=== PATIENT | female | born 2000 | race Hispanic/Latino ===

== ENCOUNTER → 2023-07-25 | Emergency (ER) | payer BC, OTHER ==
[~2023-07-25] MED LIST: FAMOTIDINE 20 MG/2 ML VIAL IV ONE; KETOROLAC 30 MG/ML INJ ONE; MORPHINE 4 MG/ML SYR ONE; ONDANSETRON 4 MG/2 ML VIAL ONE
--- OUTSIDE RECORDS SUMMARY | 2023-07-25 00:35 | XMS REPORT | Continuity of Care Document ---
Author Name Unknown Address [address] [facility] [address] [place] [address] [facility] thconnect Address [address] [facility] [address] [place] [address] Care Team Providers Care Fitness Director Name Role Phone BARTON, ANH L Primary Care Physician UnavailANASTASIIA Fowler Attending Clinician Unavailable MD DOYLE Attending Clinician Unavailab le LAB53 Attending Clinician Unavailable OU, KARENA PICKETT Attending Clinician Unavailable ADONIS PHAN Attending Clinician Unavail able LAB90 Attending Clinician Unavailable Only, Ang Db Test Attending Clinician Unavailabl Judi Ochoa Attending Clinician [phone] JUDI LE Attending Clinician Unavailable Lab, Adc Fam Pob I Attending Clinician Unavailab Katya Jiang Attending Clinician [phone] Doctor Unassigned, Bostic Attending Clinician U navailable Payers Payer Name Policy Type Policy Number Effective Date Expirati on Date Source BCBS 2 [id number] 2023 00:00:00 Allergies, Adverse Reactions, Alerts Allergy Name Allergy Type Status Severity Reaction(s) Onset Date Inactive Date Treating Clinician Comments Source NO KNOWN ALLERGIE S Drug Class Active [facility] Social History Social Habit Start Date Stop Date Quantity Comments Source Gender identity 2022-06-08 13:41:07 Identifies as female gender (finding) Thania Niñodariasam - External Sexual orientation 2022-06-08 13:41:07 Heterosexual (finding) Thania Niñodariasam - External Exposure to SARS-CoV-2 (event) Yes [facility] Alcohol intake 2023 00:00:00 2023 00:00:00 Lifetime non-drinker (finding) Thania Lyon - External History of Social function 2023-01-28 00:00:00 2023-01-28 00:00:00 Thania Niñodariasam - External Tobacco use and exposure 2017-10-31 00:00:00 2017-10-31 00:00:[address] [facility] Sex Assigned At 2000 00:00:00 2000 00:00:00 F Thania Lyon - External Smoking Status Start Date Stop Date Source Never smoked tobacco Thania Lyon - External Medications Ordered Medication Name Filled Medication Name Start Date Stop Date Current Medication? Ordering Clinician Indication Dosage Frequency Signature (SIG) Comments Components Source Semaglutide -Weight Management (Wegovy) 1.7 MG/0.75ML subcutaneou s Solution Auto-inject or 2022-05 00:00: 00 Yes [id number] 1.7mg Inject 1.7 mg into the skin once a week. Thania swartz Ondansetron (ZOFRAN) 4 MG oral TABLET DISPERSIBLE 2022-05 00:00: 00 Yes [id number] 4mg [id number] 3D Take 1 tablet (4 mg total) by mouth every 8 hours as needed for nausea. Thania swartz Semaglutide -Weight Management (Wegovy) 1.7 MG/0.75ML subcutaneou s Solution Auto-inject or 2022-05 00:00: 00 04-29 00:00 :00 No [id number] 1.7mg Inject 1.7 mg into the skin once a week. Thania Beana sheridan Spironolact one 50 MG oral Tablet 2023-1 2-10 00:00: 00 Yes [id number] 50mg Take 1 tablet (50 mg total) by mouth 2 times daily. Thania swartz Semaglutide -Weight Management (Wegovy) 1.7 MG/0.75ML subcutaneou s Solution Auto-inject or 2022-05 00:00: 00 Yes [id number] 1.7mg Inject 1.7 mg into the skin once a week. Thania Lyon - Externa l Semaglutide -Weight Management (Wegovy) 1.7 MG/0.75ML subcutaneou s Solution Auto-inject or 2022-05 00:00: 00 04-29 00:00 :00 No [id number] 1.7mg Inject 1.7 mg into the skin once a week. Thania Bansal l Spironolact one 50 MG oral Tablet 2022-05 00:00: 00 Yes [id number] 50mg Take 1 tablet (50 mg total) by mouth 2 times daily. Thania swartz Semaglutide -Weight Management (Wegovy) 0.25 MG/0.5ML subcutaneou s Solution Auto-inject or 2022-05 0 00:00: 00 03-28 00:00 :00 No [id number] .25mg Inject 0.25 mg into the skin once a week. Thania swartz Semaglutide -Weight Management (Wegovy) 0.5 MG/0.5ML subcutaneou s Solution Auto-inject or 01-16 00:00: 00 Yes [id number] .5mg Inject 0.5 mg into the skin once a week. Thania Bansal l Spironolact one 50 MG oral Tablet 01-16 00:00: 00 Yes [id number] 50mg Take 1 tablet (50 mg total) by mouth 2 times daily. Thania Lyon - Genevaa l Spironolact one 50 MG oral Tablet 9 00:00: 00 01-16 00:00 :00 No [id number] 50mg TAKE ONE (1) TABLET(S) BY MOUTH TWICE A DAY. Thania swartz Metformin HCl 500 MG oral Tablet 8-11 00:00: 00 01-16 00:00 :00 No [id number] TAKE ONE (1) TABLET(S) BY MOUTH IN THE MORNING AND IN THE EVENING WITH MEALS. Thania swartz Liraglutide -Weight Management (Saxenda) 18 MG/3ML subcutaneou s Solution Pen-injecto r 8-02 00:00: 00 01-16 00:00 :00 No [id number] .6mg Inject 0.1 mL (0.6 mg total) into the skin daily Thania swartz Semaglutide -Weight Management (Wegovy) 0.5 MG/0.5ML subcutaneou s Solution Auto-inject or 7-03 00:00: 00 01-16 00:00 :00 No [id number] .5mg Inject 0.5 mg into the skin once a week Thania swartz Semaglutide -Weight Management (Wegovy) 0.5 MG/0.5ML subcutaneou s Solution Auto-inject or 10-10 00:00: 00 Yes [id number] .5mg Inject 0.5 mg into the skin once a week Thania swartz Spironolact one 50 MG oral Tablet 10-10 00:00: 00 Yes [id number] 50mg Take 1 tablet (50 mg total) by mouth 2 times daily Thania swartz Semaglutide -Weight Management (Wegovy) 0.5 MG/0.5ML subcutaneou s Solution Auto-inject or 10-10 00:00: 00 Yes [id number] .5mg Inject 0.5 mg into the skin once a week Thania swartz Spironolact one 50 MG oral Tablet 10-10 00:00: 00 Yes [id number] 50mg Take 1 tablet (50 mg total) by mouth 2 times daily Thania swartz Spironolact one 50 MG oral Tablet 10-10 00:00: 00 10-10 00:00 :00 No [id number] 50mg Take 1 tablet (50 mg total) by mouth daily Thania swartz Semaglutide -Weight Management (Wegovy) 0.25 MG/0.5ML subcutaneou s Solution Auto-inject or 0 09-12 00:00: 00 Yes [id number] .25mg Inject 0.25 mg into the skin once a week Thania swartz Semaglutide -Weight Management (Wegovy) 0.25 MG/0.5ML subcutaneou s Solution Auto-inject or 09-12 00:00: 00 10-10 00:00 :00 No [id number] .25mg Inject 0.25 mg into the skin once a week Thania swartz Norgestimat e-Eth Estradiol (Sprintec 28) 0.25-35 MG-MCG oral Tablet 09-05 00:00: 00 Yes [id number] 1{tbl} Take 1 tablet by mouth daily Thania swartz Norgestimat e-Eth Estradiol (Sprintec 28) 0.25-35 MG-MCG oral Tablet 09-05 00:00: 00 Yes [id number] 1{tbl} Take 1 tablet by mouth daily Thania swartz Norgestimat e-Eth Estradiol (Sprintec 28) 0.25-35 MG-MCG oral Tablet 09-05 00:00: 00 Yes [id number] 1{tbl} Take 1 tablet by mouth daily Thania swartz Norgestimat e-Eth Estradiol (Sprintec 28) 0.25-35 MG-MCG oral Tablet 0 09-05 00:00: 00 Yes [id number] 1{tbl} Take 1 tablet by mouth daily Thania swartz Norgestimat e-Eth Estradiol (Sprintec 28) 0.25-35 MG-MCG oral Tablet 09-05 00:00: 00 Yes [id number] 1{tbl} Take 1 tablet by mouth daily Thania swartz Norgestimat e-Eth Estradiol (Sprintec 28) 0.25-35 MG-MCG oral Tablet 09-05 00:00: 00 Yes [id number] 1{tbl} Take 1 tablet by mouth daily Thania swartz Norgestimat e-Eth Estradiol (Sprintec 28) 0.25-35 MG-MCG oral Tablet 09-05 00:00: 00 Yes [id number] 1{tbl} Take 1 tablet by mouth daily Thania swartz Phentermine HCl 37.5 MG oral Tablet 14 00:00: 00 09-05 00:00 :00 No [id number] 37.5mg Take 1 tablet (37.5 mg total) by mouth every morning (before breakfast) Thania swartz Semaglutide -Weight Management (Wegovy) 0.25 MG/0.5ML subcutaneou s Solution Auto-inject or 08-22 00:00: 00 09-05 00:00 :00 No [id number] .25mg Inject 0.25 mg into the skin once a week Thania swartz Metformin HCl 500 MG oral Tablet 08-14 00:00: 00 Yes [id number] TAKE ONE (1) TABLET(S) BY MOUTH IN THE MORNING AND 1 TABLET IN THE EVENING WITH MEALS. Thania swartz Metformin HCl 500 MG oral Tablet 08-14 00:00: 00 Yes [id number] TAKE ONE (1) TABLET(S) BY MOUTH IN THE MORNING AND 1 TABLET IN THE EVENING WITH MEALS. Thania swartz Spironolact one 25 MG oral Tablet 08-14 00:00: 00 Yes [id number] TAKE ONE (1) TABLET (25 MG TOTAL) BY MOUTH 2 TIMES DAILY. Thania swartz Metformin HCl 500 MG oral Tablet 08-14 00:00: 00 Yes [id number] TAKE ONE (1) TABLET(S) BY MOUTH IN THE MORNING AND 1 TABLET IN THE EVENING WITH MEALS. Thania swartz Spironolact one 25 MG oral Tablet 08-14 00:00: 00 Yes [id number] TAKE ONE (1) TABLET (25 MG TOTAL) BY MOUTH 2 TIMES DAILY. Thania swartz Metformin HCl 500 MG oral Tablet 08-14 00:00: 00 Yes [id number] TAKE ONE (1) TABLET(S) BY MOUTH IN THE MORNING AND 1 TABLET IN THE EVENING WITH MEALS. Thania swartz Spironolact one 25 MG oral Tablet 08-14 00:00: 10-10 00:00 :00 No [id number] TAKE ONE (1) TABLET (25 MG TOTAL) BY MOUTH 2 TIMES DAILY. Thania swartz Dulaglutide (Trulicity) 0.75 MG/0.5ML subcutaneou s Solution Pen-injecto r 08-06 00:00: 00 Yes [id number] .75mg Inject 0.75 mg into the skin once a week Thania swartz Montelukast (Singulair) 10 MG oral Tablet tablet 08-06 00:00: 00 Yes [id number] 10mg Take 1 tablet (10 mg total) by mouth nightly Thania swartz Ibuprofen (MOTRIN) 600 MG oral Tablet 08-06 00:00: 00 Yes [id number] 100 600mg Q.[id number] 3D Take 1 tablet (600 mg total) by mouth every 8 hours as needed for pain Thania swartz Montelukast (Singulair) 10 MG oral Tablet tablet 08-06 00:00: 00 09-05 00:00 :00 No [id number] 10mg Take 1 tablet (10 mg total) by mouth nightly Thania swartz Ibuprofen (MOTRIN) 600 MG oral Tablet 08-06 00:00: 00 09-05 00:00 :00 No [id number] 100 600mg Q.[id number] 3D Take 1 tablet (600 mg total) by mouth every 8 hours as needed for pain Thania swartz Trulicity 0.75 MG/0.5ML subcutaneou s Solution Pen-injecto r 3-14 00:00: 00 08-06 00:00 :00 No [id number] .75mg Inject 0.75 mg into the skin once a week Thania swartz Spironolact one 25 MG oral Tablet 07-11 00:00: 00 Yes [id number] 25mg Take 1 tablet (25 mg total) by mouth 2 times daily Thania swartz Metformin HCl 500 MG oral Tablet 07-09 00:00: 00 Yes [id number] 500mg Take 1 tablet (500 mg total) by mouth in the morning and 1 tablet (500 mg total) in the evening. Take with meals. Thania swartz Spironolact one 25 MG oral Tablet 07-09 00:00: 00 Yes [id number] 25mg Take 1 tablet (25 mg total) by mouth daily Thania swartz Eflornithin e HCl 13.9 % apply externally Cream 07-09 00:00: 00 Yes [id number] Apply 1 applicatio n. topically 2 times daily (with meals) Thania swartz Norethin-Et h Estrad-Fe Biphas (Lo Loestrin Fe) 1 MG-10 MCG / 10 MCG oral Tablet 07-09 00:00: 00 Yes [id number] 1{tbl} Take 1 tablet by mouth daily Thania swartz Semaglutide (0.25 or 0.5 mg/dose) 2 mg/1.5 mL SQ Solution Pen-Injecto r 07-09 00:00: 00 Yes [id number] .25mg Inject 0.25 mg into the skin once a week Thania swartz Metformin HCl 500 MG oral Tablet 07-09 00:00: 00 Yes [id number] 500mg Take 1 tablet (500 mg total) by mouth in the morning and 1 tablet (500 mg total) in the evening. Take with meals. Thania swartz Eflornithin e HCl 13.9 % apply externally Cream 07-09 00:00: 00 Yes [id number] Apply 1 applicatio n. topically 2 times daily (with meals) Thania swartz Norethin-Et h Estrad-Fe Biphas (Lo Loestrin Fe) 1 MG-10 MCG / 10 MCG oral Tablet 07-09 00:00: 00 Yes [id number] 1{tbl} Take 1 tablet by mouth daily Thania swartz Eflornithin e HCl 13.9 % apply externally Cream 07-09 00:00: 00 09-05 00:00 :00 No [id number] Apply 1 applicatio n. topically 2 times daily (with meals) Thania swartz Norethin-Et h Estrad-Fe Biphas (Lo Loestrin Fe) 1 MG-10 MCG / 10 MCG oral Tablet 07-09 00:00: 00 09-05 00:00 :00 No [id number] 1{tbl} Take 1 tablet by mouth daily Thania swartz beclomethade one dipropionat e (QNASL) 40 mcg/actuati on [facility] 12-18 00:00: 00 Yes [id number] 1{spray } Use 1 Pearsall in each nostril 2 (two) times daily. [facility] levocetiriz ine 5 mg tablet 12-18 00:00: 00 Yes [id number] 5mg Take 1 tablet by mouth every evening. [facility] montelukast (SINGULAIR) 10 mg tablet 12-18 00:00: 00 Yes [id number] 10mg Take 1 tablet by mouth daily. [facility] beclomethas one dipropionat e (QNASL) 40 mcg/actuati on [facility] 12-18 00:00: 00 Yes [id number] 1{spray } Use 1 [place]ears[place] in each nostril 2 (two) times daily. [facility] levocetiriz ine 5 mg tablet 12-18 00:00: 00 Yes [id number] 5mg Take 1 tablet by mouth every evening. [facility] montelukast (SINGULAIR) 10 mg tablet 12-18 00:00: 00 Yes [id number] 10mg Take 1 tablet by mouth daily. [facility] beclomethas one dipropionat e (QNASL) 40 mcg/actuati on [facility] 12-18 00:00: 00 Yes [id number] 1{spray } Use 1 Pearsall in each nostril 2 (two) times daily. [facility] levocetiriz ine 5 mg tablet 12-18 00:00: 00 Yes [id number] 5mg Take 1 tablet by mouth every evening. [facility] montelukast (SINGULAIR) 10 mg tablet 12-18 00:00: 00 Yes [id number] 10mg Take 1 tablet by mouth daily. [facility] beclomethas one dipropionat e (QNASL) 40 mcg/actuati on [facility] 12-18 00:00: 00 Yes [id number] 1{spray } Use 1 Pearsall in each nostril 2 (two) times daily. [facility] levocetiriz ine 5 mg tablet 12-18 00:00: 00 Yes [id number] 5mg Take 1 tablet by mouth every evening. [facility] montelukast (SINGULAIR) 10 mg tablet 12-18 00:00: 00 Yes [id number] 10mg Take 1 tablet by mouth daily. [facility] beclomethas one dipropionat e (QNASL) 40 mcg/actuati on [facility] 12-18 00:00: 00 Yes [id number] 1{spray } Use 1 Pearsall in each nostril 2 (two) times daily. [facility] levocetiriz ine 5 mg tablet 12-18 00:00: 00 Yes [id number] 5mg Take 1 tablet by mouth every evening. [facility] montelukast (SINGULAIR) 10 mg tablet 12-18 00:00: 00 Yes [id number] 10mg Take 1 tablet by mouth daily. [facility] IBUPROFEN ORAL 6-28 15:46: 39 Yes Take by mouth. [facility] IBUPROFEN ORAL 11-07 15:46: 39 Yes Take by mouth. [facility] IBUPROFEN ORAL 11-07 15:46: 39 Yes Take by mouth. [facility] IBUPROFEN ORAL 11-07 15:46: 39 Yes Take by mouth. [facility] IBUPROFEN ORAL 11-07 10:46: 39 Yes Take by mouth. [facility] prednisoLON E 15 mg/5 mL solution 11-07 00:00: 00 Yes [id number] Take 15 ml PO QAM with food for 5 days starting Saturday after surgery [facility] maalox:diph enhydrAMINE :lidocaine2 %viscous 1:1:1: suspension (COMPOUNDED ) 11-07 00:00: 00 Yes [id number] Swish and spit 10 ml PO q3-4 hrs prn tonsillect arvin pain [facility] HYDROcodone -acetaminop hen 7.5-325 mg/15 mL solution 11-07 00:00: 00 Yes [id number] Take 15 ml PO q3-4 hrs prn severe pain; alternate liquid ibuprofen and Tylenol first [facility] prednisoLON E 15 mg/5 mL solution 11-07 00:00: 00 Yes [id number] Take 15 ml PO QAM with food for 5 days starting Saturday after surgery [facility] maalox:diph enhydrAMINE :lidocaine2 %viscous 1:1:1: suspension (COMPOUNDED ) 11-07 00:00: 00 Yes [id number] Swish and spit 10 ml PO q3-4 hrs prn tonsillect arvin pain [facility] HYDROcodone -acetaminop hen 7.5-325 mg/15 mL solution 11-07 00:00: 00 Yes [id number] Take 15 ml PO q3-4 hrs prn severe pain; alternate liquid ibuprofen and Tylenol first [facility] prednisoLON E 15 mg/5 mL solution 11-07 00:00: 00 Yes [id number] Take 15 ml PO QAM with food for 5 days starting Saturday after surgery [facility] maalox:diph enhydrAMINE :lidocaine2 %viscous 1:1:1: suspension (COMPOUNDED ) 11-07 00:00: 00 Yes [id number] Swish and spit 10 ml PO q3-4 hrs prn tonsillect arvin pain [facility] HYDROcodone -acetaminop hen 7.5-325 mg/15 mL solution 11-07 00:00: 00 Yes [id number] Take 15 ml PO q3-4 hrs prn severe pain; alternate liquid ibuprofen and Tylenol first [facility] prednisoLON E 15 mg/5 mL solution 11-07 00:00: 00 Yes [id number] Take 15 ml PO QAM with food for 5 days [facility]lidocaine2 %viscous 1:1:1: suspension (COMPOUNDED ) 11-07 00:00: 00 Yes [id number] Swish and spit 10 ml PO q3-4 hrs prn tonsillect arvin pain [facility] HYDROcodone -acetaminop hen 7.5-325 mg/15 mL solution 11-07 00:00: 00 Yes [id number] Take 15 ml PO q3-4 hrs prn severe pain; alternate liquid ibuprofen and Tylenol first [facility] prednisoLON E 15 mg/5 mL solution 11-07 00:00: 00 Yes [id number] Take 15 ml PO QAM with food for 5 days starting Saturday after surgery [facility] maalox:diph enhydrAMINE :lidocaine2 %viscous 1:1:1: suspension (COMPOUNDED ) 11-07 00:00: 00 Yes [id number] Swish and spit 10 ml PO q3-4 hrs prn tonsillect arvin pain [facility] HYDROcodone -acetaminop hen 7.5-325 mg/15 mL solution 11-07 00:00: 00 Yes [id number] Take 15 ml PO q3-4 hrs prn severe pain; alternate liquid ibuprofen and Tylenol first [facility] Immunizations Ordered Immunization Name Filled Immunization Name Date Status Comments Source Hepatitis B- 2 Dose (HEPLISAV B) 2022-10-10 00:00:00 Completed Thania Seybold - External Hepatitis B- 2 Dose (HEPLISAV B) 2022-10-10 00:00:00 Completed Thania Seybold - External Hepatitis B- 2 Dose (HEPLISAV B) 2022-10-10 00:00:00 Completed Thania Seybold - External Hepatitis B- 2 Dose (HEPLISAV B) 2022-09-12 00:00:00 Completed Thania Seybold - External Hepatitis B- 2 Dose (HEPLISAV B) 2022-09-12 00:00:00 Completed Thania Seybold - External Hepatitis B- 2 Dose (HEPLISAV B) 2022-09-12 00:00:00 Completed Thania Seybold - External Hepatitis B- 2 Dose (HEPLISAV B) 2022-09-12 00:00:00 Completed Thania Seybold - External Hepatitis B- 2 Dose (HEPLISAV B) Unknown Completed Thania Seybold - External Hepatitis B- 2 Dose (HEPLISAV B) Unknown Completed Thania Seybold - External Hepatitis B- 2 Dose (HEPLISAV B) Unknown Completed Thania Seybold - External Hepatitis B- 2 Dose (HEPLISAV B) Unknown Completed Thania Seybold - External Vital Signs Vital Name Observation Time Observation Value Comments S ource Systolic blood pressure 2023 15:35:00 116 mm[Hg] Thnaia Seybo ld - External Diastolic blood pressure 2023 15:35:00 64 mm[Hg] Thania Seybo ld - External Heart rate 2023 15:35:00 90 /min Russ vasquez Seybold - External Body temperature 2023 15:35:00 36.67 Princess Thania Seybold - External Respiratory rate 2023 15:35:00 16 /min Thania Seybold - External Body height 2023 15:35:00 165.1 cm Nelly ey Seybold - External Body weight 2023 15:35:00 117.623 kg Nelly ey Seybold - External BMI 2023 15:35:00 43.15 kg/m2 Nelly ey Seybold - External Oxygen saturation in Arterial blood by Pulse oximetry 2023 15:35:00 99 /min Thania Seybo ld - External Systolic blood pressure 2023-03-28 13:49:00 126 mm[Hg] Thania Seybo ld - External Diastolic blood pressure 2023-03-28 13:49:00 72 mm[Hg] Thania Seybo ld - External Heart rate 2023-03-28 13:49:00 97 /min Kelse y Seybold - External Body temperature 2023-03-28 13:49:00 36.17 Princess Thania Seybold - External Respiratory rate 2023-03-28 13:49:00 15 /min Thania Seybold - External Body height 2023-03-28 13:49:00 165.1 cm Nelly ey Seybold - External Body weight 2023-03-28 13:49:00 125.193 kg Nelly ey Seybold - External BMI 2023-03-28 13:49:00 45.93 kg/m2 Nelly ey Seybold - External Systolic blood pressure 2023-01-16 21:16:00 144 mm[Hg] Thania Seybo ld - External Diastolic blood pressure 2023-01-16 21:16:00 86 mm[Hg] Thania Seybo ld - External Heart rate 2023-01-16 21:16:00 92 /min Kelse y Seybold - External Body temperature 2023-01-16 21:16:00 36.39 Princess Thania Seybold - External Respiratory rate 2023-01-16 21:16:00 14 /min Thania Seybold - External Body height 2023-01-16 21:16:00 165.1 cm Nelly ey Seybold - External Body weight 2023-01-16 21:16:00 124.286 kg Nelly ey Seybold - External BMI 2023-01-16 21:16:00 45.60 kg/m2 Nelly ey Seybold - External Systolic blood pressure 2022-11-07 14:25:00 134 mm[Hg] Thania Seybo ld - External Diastolic blood pressure 2022-11-07 14:25:00 78 mm[Hg] Thania Seybo ld - External Heart rate 2022-11-07 14:25:00 98 /min Kelse y Seybold - External Body temperature 2022-11-07 14:25:00 36.17 Princess Thania Seybold - External Respiratory rate 2022-11-07 14:25:00 14 /min Thania Seybold - External Body height 2022-11-07 14:25:00 165.1 cm Nelly ey Seybold - External Body weight 2022-11-07 14:25:00 125.193 kg Nelly ey Seybold - External BMI 2022-11-07 14:25:00 45.93 kg/m2 Nelly ey Seybold - External Systolic blood pressure 2022-10-10 15:13:00 126 mm[Hg] Thania Seybo ld - External Diastolic blood pressure 2022-10-10 15:13:00 70 mm[Hg] Thania Seybo ld - External Heart rate 2022-10-10 15:13:00 102 /min Kelse y Seybold - External Body temperature 2022-10-10 15:13:00 36.56 Princess Thania Seybold - External Respiratory rate 2022-10-10 15:13:00 14 /min Thania Seybold - External Body height 2022-10-10 15:13:00 165.1 cm Nelly ey Seybold - External Body weight 2022-10-10 15:13:00 125.193 kg Nelly ey Seybold - External BMI 2022-10-10 15:13:00 45.93 kg/m2 Nelly ey Seybold - External Systolic blood pressure 2022-09-12 13:59:00 120 mm[Hg] Thania Seybo ld - External Diastolic blood pressure 2022-09-12 13:59:00 60 mm[Hg] Thania Seybo ld - External Heart rate 2022-09-12 13:59:00 124 /min Kelse y Seybold - External Body temperature 2022-09-12 13:59:00 36.67 Princess Thania Seybold - External Respiratory rate 2022-09-12 13:59:00 15 /min Thania Seybold - External Body height 2022-09-12 13:59:00 165.1 cm Nelly ey Seybold - External Body weight 2022-09-12 13:59:00 127.007 kg Nelly ey Seybold - External BMI 2022-09-12 13:59:00 46.59 kg/m2 Nelly ey Seybold - External Systolic blood pressure 2022-09-05 15:05:00 130 mm[Hg] Thania Seybo ld - External Diastolic blood pressure 2022-09-05 15:05:00 84 mm[Hg] Thania Seybo ld - External Heart rate 2022-09-05 15:05:00 93 /min Kelse y Seybold - External Body temperature 2022-09-05 15:04:00 36.89 Princess Thania Seybold - External Respiratory rate 2022-09-05 15:04:00 16 /min Thania Seybold - External Body height 2022-09-05 15:04:00 165.1 cm Nelly ey Seybold - External Body weight 2022-09-05 15:04:00 125.919 kg Nelly ey Seybold - External BMI 2022-09-05 15:04:00 46.20 kg/m2 Nelly ey Seybold - External Systolic blood pressure 2022-08-06 13:01:00 124 mm[Hg] Thania Seybo ld - External Diastolic blood pressure 2022-08-06 13:01:00 76 mm[Hg] Thania Seybo ld - External Heart rate 2022-08-06 13:01:00 110 /min Kelse y Seybold - External Body temperature 2022-08-06 13:01:00 36.83 Princess Thania Seybold - External Respiratory rate 2022-08-06 13:01:00 14 /min Thania Seybold - External Body height 2022-08-06 13:01:00 165.1 cm Nelly ey Seybold - External Body weight 2022-08-06 13:01:00 128.822 kg Nelly ey Seybold - External BMI 2022-08-06 13:01:00 47.26 kg/m2 Nelly ey Seybold - External Oxygen saturation in Arterial blood by Pulse oximetry 2022-08-06 13:01:00 99 /min Thania Seybo ld - External Systolic blood pressure 2022-07-09 21:49:00 136 mm[Hg] Thania Seybo ld - External Diastolic blood pressure 2022-07-09 21:49:00 82 mm[Hg] Thania Navarro ld - External Heart rate 2022-07-09 21:49:00 123 /min Russ Lyon - External Body temperature 2022-07-09 21:49:00 37 Princess Thania Lyon - External Respiratory rate 2022-07-09 21:49:00 14 /min Thania Lyon - External Body height 2022-07-09 21:49:00 165.1 cm Nelly Lyon - External Body weight 2022-07-09 21:49:00 128.368 kg Nelly hunter Seybsam - External BMI 2022-07-09 21:49:00 47.09 kg/m2 Nelly hunter Seybsam - External Procedures Procedure Date / Time Performed Performing Clinicia n Source ASSIGNMENT OF BENEFITS 2020-09-12 22:05:14 Docto r Unassigned, [facility] Encounters Start Date/Time End Date/Time Encounter Type Admission Type Attending [facility] Care Department Encounter ID Source 2023-08-26 09:30:00 2023-08-26 09:30:00 Outpatient ANASTASIIA MORTENSEN [id number] Thania david 2023-07-10 00:00:00 2023-07-10 00:00:00 Outpatient ANASTASIIA MORTENSEN [id number] Thania david 2023-06-29 00:00:00 2023-06-29 00:00:00 Outpatient ANASTASIIA MORTENSEN [id number] Thania david 2023-05-27 10:30:00 2023-05-27 10:30:00 Outpatient ANASTASIIA MORTENSEN [id number] Thania david 2023 09:30:00 2023 09:30:00 Outpatient ANASTASIIA MORTENSEN [id number] Thania david 2023-04-24 14:30:00 2023-04-24 14:30:00 Outpatient ANASTASIIA MORTENSEN [id number] Thania sam 2023-04-19 00:00:00 2023-04-19 00:00:00 Outpatient HUNDL, ANASTASIIA MARTÍNEZ [id number] [facility] 2023-03-28 08:00:00 2023-03-28 08:00:00 Outpatient HUNDL, ANASTASIIA MARTÍNEZ [id number] [facility] 2023-03-28 08:00:00 2023-03-28 08:00:00 Outpatient HUNDL, ANASTASIIA MARTÍNEZ [id number] [facility] 2023-03-16 00:00:00 2023-03-16 00:00:00 Outpatient HUNDL, ANASTASIIA MARTÍNEZ [id number] [facility] 2023-02-15 09:30:00 2023-02-15 09:30:00 Outpatient HUNDL, ANASTASIIA MARTÍNEZ [id number] [facility] 2023-02-14 00:00:00 2023-02-14 00:00:00 Outpatient HUNDL, ANASTASIIA [facility]ART[facility]NEZ [id number] [facility]17 14:30:00 2023-01-17 14:30:00 Outpatient HUNDL, ANASTASIIA MARTÍNEZ [id number] [facility] 2023-01-16 16:30:00 2023-01-16 16:30:00 Outpatient HUNDL, ANASTASIIA MARTÍNEZ [id number] [facility]23-01-10 00:00:00 2023-01-10 00:00:00 Outpatient HUNDL, ANASTASIIA MARTÍNEZ [id number] [facility] 2022-12-20 00:00:00 2022-12-20 00:00:00 Outpatient HUNDL, ANASTASIIA MARTÍNEZ [id number] [facility] 2022-12-11 00:00:00 2022-12-11 00:00:00 Outpatient HUNDL, ANASTASIIA MARTÍNEZ [id number] [facility] 2022-12-06 00:00:00 2022-12-06 00:00:00 Outpatient HUNDL, ANASTASIIA MARTÍNEZ [id number] [facility]ania Seybold 2022-11-14 00:00:00 2022-11-14 00:00:00 Outpatient MD THANIA CARTER [id number] Thania david 2022-11-07 09:30:00 2022-11-07 09:30:00 Outpatient HUNDSheridan, ANASTASIIA MARTÍNEZ [id number] [facility]ania david 2022-11-07 00:00:00 2022-11-07 00:00:00 Outpatient HUNDL, ANASTASIIA MARTÍNEZ [id number] [facility]ania Irenasam 2022-10-12 00:00:00 2022-10-12 00:00:00 Outpatient HUNDL, ANASTASIIA MARTÍNEZ [id number] [facility] david 2022-10-11 00:00:00 2022-10-11 00:00:00 Outpatient HUNDL, ANASTASIIA MARTÍNEZ [id number] [facility] david 2022-10-10 10:30:00 2022-10-10 10:30:00 Outpatient HUNDL, ANASTASIIA MARTÍNEZ [id number] [facility] 2022-09-19 00:00:00 2022-09-19 00:00:00 Outpatient MD THANIA CARTER [id number] [facility] david 2022-09-12 09:00:00 2022-09-12 09:00:00 Outpatient FESTUS, ANASTASIIA MARTÍNEZ [id number] [facility] david 2022-09-05 11:00:00 2022-09-05 11:00:00 Outpatient LABJose Armando MARTÍNEZ [id number] [facility] 2022-09-05 10:15:00 2022-09-05 10:15:00 Outpatient KARENA AVILES [id number] [facility] Sedavid 2022-08-16 00:00:00 2022-08-16 00:00:00 Outpatient PERLITAL, ANASTASIIA MARTÍNEZ [id number] [facility] Lyon 2022-08-14 00:00:00 2022-08-14 00:00:00 Outpatient FESTUS, ANASTASIIA MARTÍNEZ [id number] [facility] Seybsam 2022-08-08 14:15:00 2022-08-08 14:15:00 Outpatient ADONIS PHAN [id number] [facility] 2022-08-06 08:00:00 2022-08-06 08:00:00 Outpatient HUNDANASTASIIA Swartz THANIA MARTÍNEZ [id number] [facility] 2022-07-25 00:00:00 2022-07-25 00:00:00 Outpatient HUNDANASTASIIA Swartz THANIA MARTÍNEZ [id number] [facility] Niñosma 2022-07-20 00:00:00 2022-07-20 00:00:00 Outpatient HUNDL, ANASTASIIA THANIA MARTÍNEZ [id number] [facility] 2022-07-16 00:00:00 2022-07-16 00:00:00 Outpatient FESTUS ANASTASIIA MARTÍNEZ [id number] [facility]ania Sonali 2022-07-13 08:35:00 2022-07-13 08:35:00 Outpatient LAB90 THANIA MARTÍNEZ [id number] [facility] 2022-07-12 00:00:00 2022-07-12 00:00:00 Outpatient MD THANIA CARTER [id number] [facility] 2022-07-11 00:00:00 2022-07-11 00:00:00 Outpatient FESTUS ANASTASIIA MARTÍNEZ [id number] [facility] 2022-07-09 16:00:00 2022-07-09 16:00:00 Outpatient FESTUS ANASTASIIA MARTÍNEZ [id number] [facility] 2022-06-14 13:30:00 2022-06-14 13:30:00 Outpatient HUNDSheridan ANASTASIIA MARTÍNEZ [id number] [facility] 2021-05-11 17:00:00 2021-05-11 17:15:00 Laboratory Only Only, Ang Db Mac Le Judi [facility] [id number] 350.1.13.10 [id number] [id number] [facility] 2021-05-11 17:00:00 2021-05-11 16:39:[address] [facility] [id number] [facility] 2020-09-12 17:06:23 2020-09-12 17:26:23 Laboratory Only Lab, Adc [facility] 1.840.114 350.1.13.10 4.2.7.2.686 [id number] [facility] 2020-09-12 00:00:00 2020-09-12 00:00:00 Orders Only Doctor Unassigned, [facility] 1.840.114 350.1.13.10 4.2.7.2.686 [id number] [facility] 2020-09-12 00:00:00 2020-09-12 00:00:00 Letter (Out) Doctor Unassigned, [facility] 1.840.114 350.1.13.10 4.2.7.2.686 [id number] [facility] 2020-09-12 00:00:00 2020-09-12 00:00:00 Letter (Out) Doctor Unassigned, [facility] [id number] 350.1.13.10 4.2.7.2.686 [id number] [facility] Notes Date/Time Note Provider Source 2023-01-16 16:18:51 [id number] -09-06T16:18:51 Chief Complaint Patient presents with Follow[place] [id number]:19:12Nurse [id number] for patient [id number] NoteLNFRANA[facility]2727 [facility].[id number]:[id number] [id number]|[id number] [id number] [facility]"
[2023-07-25 01:42] LABS: Specific Gravity 1.019 (1.005-1.030); Urine Bilirubin NEGATIVE (Negative); Urine Blood Negative (Negative); Urine Clarity Clear (Clear); Urine Color Light-Yellow (Yellow); Urine Glucose NEGATIVE (Negative); Urine Ketones NEGATIVE (Negative); Urine Microscopic Reflex YN NO UMIC; Urine Nitrite NEGATIVE (Negative); Urine Protein NEGATIVE (Negative); Urine Urobilinogen Normal (Normal); Urine pH 6.5 (5.0-7.0)
[2023-07-25 01:43] LABS: Specific Gravity 1.018 (1.005-1.030)
[2023-07-25 01:47] LABS: Absolute Basophils 0.1 K/uL (0-0.5); Absolute Eosinophils 0.3 K/uL (0-0.5); Absolute Monocytes 0.7 K/uL (0.1-1.3); Absolute Neutrophil 8.5 K/uL (1.8-8.0); Basophils % 0.5 % (0-1.3); Eosinophils % 2.5 % (0-4.4); Hematocrit 38.7 % (36.0-45.0); Hemoglobin 13.4 g/dL (12.0-15.0); Lymphocytes % 23.5 % (15.3-44.8); MCH 31.4 pg (27.0-35.0); MCHC 34.5 g/dL (32.0-36.0); MCV 90.9 fL (80-100); MPV 8.1 fL (7.6-11.3); Monocytes % 5.9 % (3.3-12.3); Neutrophils % 67.6 % (41.7-73.7); Platelets 331 thou/uL (152-406); RBC Red Blood Cell Count 4.26 M/uL (3.86-4.86); Red Cell Distribution Width 13.1 % (12.1-15.2)
[2023-07-25 02:01] LABS: Albumin 3.2 g/dL (3.4-5.0); Albumin/Globulin Ratio 0.7 (1.1-1.8); Anion Gap 11.9 mEq/L (5.0-15.0); Bilirubin Total 0.1 mg/dL (0.2-1.0); Globulin 4.4 g/dL (2.3-3.5); Potassium 3.9 mEq/L (3.5-5.1); Protein, Total 7.6 g/dL (6.4-8.2)
--- NOTE | 2023-07-25 04:18 | ER ---
Nurse's Notes [facility] Name: Carla Craven Age: 23 yrs Sex: Female : 2000 Arrival Date: 07/25/2023 Time: 00:32 Bed 8 Private MD: Diagnosis: Other cholelithiasis without obstruction;Cholelithiasis without acute cholecystitis. Epigastric abdominal pain Presentation: 07/24 00:53 Chief complaint: Patient states: I am having upper abdominal pain and mid back pain. It jb4 started about 2 hours ago suddenly. I have never had this pain before, no nausea, or vomiting. Coronavirus screen: At this time, the client does not indicate any symptoms associated with coronavirus-19. Ebola Screen: No symptoms or risks identified at this time. Initial Sepsis Screen: Does the patient meet any 2 criteria? HR > 90 bpm. Yes Does the patient have a suspected source of infection? No. Patient's initial sepsis screen is negative. Risk Assessment: Do you want to hurt yourself or someone else? Patient reports no desire to harm self or others. Onset of symptoms was July 25, 2023. Transition of care: patient was not received from another setting of care. 00:53 Method Of Arrival: Ambulatory jb4 00:53 Acuity: SHANIKA 3 jb4 Triage Assessment: 00:56 General: Appears in no apparent distress. uncomfortable, Behavior is calm, cooperative. jb4 Pain: Complains of pain in epigastric area Pain radiates to low back area Pain currently is 10 out of 10 on a pain scale. EENT: No signs and/or symptoms were reported regarding the EENT system. Neuro: Level of Consciousness is awake, alert, obeys commands, Oriented to person, place, time, situation. Cardiovascular: Patient's skin is warm and dry. Respiratory: Airway is patent Respiratory effort is even, unlabored, Respiratory pattern is regular, symmetrical. GI: Abdomen is non-distended, obese, Reports upper abdominal pain. : No signs and/or symptoms were reported regarding the genitourinary system. Derm: Skin is intact, Skin is pink, warm \T\ dry. Musculoskeletal: Circulation, motion, and sensation intact. Range of motion: intact in all extremities. Historical: - Allergies: 00:55 No Known Allergies; jb4 - PMHx: 00:55 None; jb4 - PSHx: 00:56 Tonsillectomy; jb4 - Immunization history:: Adult Immunizations up to date. - Social history:: Smoking status: Patient denies any tobacco usage or history of. - Family history:: not pertinent. Screenin:33 [facility] ED Fall Risk Assessment (Adult) History of falling in the last 3 months, lg3 including since admission No falls in past 3 months (0 pts). Abuse screen: Denies threats or abuse. Denies injuries from another. Nutritional screening: No deficits noted. Tuberculosis screening: No symptoms or risk factors identified. Assessment: 01:33 General: Appears in no apparent distress. uncomfortable, Behavior is calm, cooperative. lg3 Pain: Complains of pain in epigastric area Pain radiates to back. Neuro: No deficits noted. Lima Agitation-Sedation Scale (RASS): 0 - Alert and Calm Level of Consciousness is awake, alert, obeys commands, Oriented to person, place, time, situation. Cardiovascular: No deficits noted. Denies chest pain, shortness of breath, Capillary refill < 3 seconds Clubbing of nail beds is absent JVD is absent Patient's skin is warm and dry. Respiratory: No deficits noted. Airway is patent Respiratory effort is even, unlabored, Respiratory pattern is regular, symmetrical, Breath sounds are clear bilaterally. GI: Abdomen is round non-distended, obese, Bowel sounds present X 4 quads. Abd is soft X 4 quads Reports upper abdominal pain. : No deficits noted. No signs and/or symptoms were reported regarding the genitourinary system. EENT: No deficits noted. No signs and/or symptoms were reported regarding the EENT system. Derm: No deficits noted. No signs and/or symptoms reported regarding the dermatologic system. Skin is intact, is healthy with good turgor, Skin is dry, Skin is normal, Skin temperature is warm. Musculoskeletal: No deficits noted. No signs and/or symptoms reported regarding the musculoskeletal system. Circulation, motion, and sensation intact. Range of motion: intact in all extremities. 02:35 Reassessment: Patient and/or family updated on plan of care and expected duration. Pain vc1 level reassessed. Patient is alert, oriented x 3, equal unlabored respirations, skin warm/dry/pink. Patient states symptoms have improved. 04:00 Reassessment: Patient appears in no apparent distress at this time. Patient and/or vc1 family updated on plan of care and expected duration. Pain level reassessed. Patient is alert, oriented x 3, equal unlabored respirations, skin warm/dry/pink. Patient states feeling better. Patient states symptoms have improved. Vital Signs: 00:53 BP 144 / 96; Pulse 119; Resp 18; Temp 97.5(TE); Pulse Ox 100% on R/A; Weight 113.4 kg; jb4 Height 5 ft. 6 in. (R); Pain 10/10; 02:30 BP 129 / 80; Pulse 88; Resp 18; Temp 98.5; Pulse Ox 96% ; vc1 04:00 BP 130 / 77; Pulse 84; Resp 15; Temp 98.4; Pulse Ox 99% ; vc1 00:53 Body Mass Index 40.35 (113.40 kg, 167.64 cm) jb4 00:53 Pain Scale: Adult jb4 ED Course: 00:33 Patient arrived in ED. jj6 00:51 Preston Reyes MD is Attending Physician. sp4 00:55 Triage completed. jb4 00:56 Arm band placed on right wrist. jb4 00:58 Radiology exam delayed due to test not completed at this time. eh4 01:33 Hailee Aranda, RN is Primary Nurse. lg3 01:33 Patient has correct armband on for positive identification. Placed in gown. Bed in low lg3 position. Call light in reach. Side rails up X 1. Client placed on continuous cardiac and pulse oximetry monitoring. NIBP monitoring applied. Door closed. Noise minimized. Warm blanket given. Family accompanied patient. 01:33 Initial lab(s) drawn, by me, sent to lab. Urine collected: clean catch specimen, clear. kmf Inserted saline lock: 22 gauge in right antecubital area, using aseptic technique. Blood collected. 01:33 Patient maintains SpO2 saturation greater than 95% on room air. lg3 01:35 CBC with Diff Sent. kmf 01:35 CMP Sent. kmf 01:35 Lipase Sent. kmf 01:35 Test, Urine Sent. kmf 01:35 Urinalysis w/ reflexes Sent. kmf 01:43 US Abdomen Limited In Process Unspecified. EDMS 02:22 CT Abd/Pelvis - IV Contrast Only In Process Unspecified. EDMS 04:16 Shemar Draper MD is Referral Physician. sp4 04:25 No provider procedures requiring assistance completed. vc1 04:33 Provided Education on: follow up wit Dr. Draper. vc1 04:33 IV discontinued, intact, bleeding controlled, No redness/swelling at site. Pressure vc1 dressing applied. Administered Medications: 02:23 Drug: morphine IVP or IV 4 mg IVP once over 4 mins Route: IVP; Infused Over: 4 mins; vc1 Site: right antecubital; 04:27 Follow up: Response: No adverse reaction; Marked relief of symptoms vc1 02:23 Drug: Ketorolac IVP 30 mg IVP once Route: IVP; Site: right antecubital; vc1 04:26 Follow up: Response: No adverse reaction; Marked relief of symptoms; Pain is decreased vc1 02:23 Drug: Ondansetron IVP 4 mg IVP once; over 2 minutes Route: IVP; Site: right antecubital;vc1 04:26 Follow up: Response: No adverse reaction; Marked relief of symptoms vc1 02:23 Drug: Famotidine IVP 20 mg IVP once; dilute with 10 mL 0.9% NaCl; give over 2 minutes vc1 Route: IVP; Site: right antecubital; 04:26 Follow up: Response: No adverse reaction; Marked relief of symptoms; Pain is decreased vc1 Medication: 02:36 VIS not applicable for this client. vc1 Outcome: 04:17 Discharge ordered by . sp4 04:33 Discharged to home ambulatory, with family, vc1 04:33 Condition: improved 04:33 Discharge instructions given to patient, Instructed on discharge instructions, follow up and referral plans. medication usage, Demonstrated understanding of instructions, follow-up care, medications, Prescriptions given X 2, 04:33 Patient left the ED. vc1 Signatures: Dispatcher [employer] EDMS Farhan Valdivia RN RN jb4 Hailee Aranda RN RN lg3 Adela La6 Elina Hernandez RN RN vc1 Luly Zaman Sergey, MD MD sp4 Thania Torres [facility] Corrections: (The following items were deleted from the chart) 00:56 00:55 PSHx: None; jb4 jb4
--- NOTE | 2023-07-25 04:18 | EDPHYS ---
Physician Documentation [facility] Name: Carla Craven Age: 23 yrs Sex: Female : 2000 Arrival Date: 07/25/2023 Time: 00:32 Bed 8 Private MD: ED Physician Preston Reyes HPI: 07/24 00:51 This 23 yrs old Female presents to ER via Unassigned with complaints of sp4 Abdominal Pain. 04:12 ED's is a 23-year-old female presents with acute epigastric pain upper abdominal pain sp4 starting 2 hours prior to arrival. No similar pain in the past. Denied heartburn or vomiting. Historical: - Allergies: 00:55 No Known Allergies; jb4 - PMHx: 00:55 None; jb4 - PSHx: 00:56 Tonsillectomy; jb4 - Immunization history:: Adult Immunizations up to date. - Social history:: Smoking status: Patient denies any tobacco usage or history of. - Family history:: not pertinent. ROS: 04:13 Constitutional: Negative for fever, chills, and weight loss, positive upper abdominal sp4 pain, positive that of epigastric pain 04:13 All other systems are negative, Exam: 04:13 Constitutional: This is a well developed, well nourished patient who is awake, alert, sp4 and in no acute distress. Head/Face: Normocephalic, atraumatic. Eyes: Pupils equal round and reactive to light, extra-ocular motions intact. Lids and lashes normal. Conjunctiva and sclera are not injected. Cornea within normal limits. Periorbital areas with no swelling, redness, or edema. ENT: Nares patent. No nasal discharge, no septal abnormalities noted. Tympanic membranes are normal and external auditory canals are clear. Oropharynx with no redness, swelling, or masses, exudates, or evidence of obstruction, uvula midline. Mucous membranes moist. Neck: Trachea midline, no thyromegaly or masses palpated, and no cervical lymphadenopathy. Supple, full range of motion without nuchal rigidity, or vertebral point tenderness. Chest/axilla: Normal chest wall appearance and motion. Nontender with no deformity. No lesions are appreciated. Cardiovascular: Regular rate and rhythm with a normal S1 and S2. No gallops, murmurs, or rubs. Normal PMI, no JVD. No pulse deficits. Respiratory: Lungs have equal breath sounds bilaterally, clear to auscultation and percussion. No rales, rhonchi or wheezes noted. No increased work of breathing, no retractions or nasal flaring. Abdomen/GI: Soft, with normal bowel sounds. No distension or tympany. No guarding or rebound. No evidence of tenderness throughout. Back: No spinal tenderness. No costovertebral tenderness. Skin: Warm, dry with normal turgor. Normal color with no rashes, no lesions, and no evidence of cellulitis. MS/ Extremity: Pulses equal, no cyanosis. Neurovascular intact. Full, normal range of motion. Neuro: Awake and alert, GCS 15, oriented to person, place, time, and situation. Cranial nerves II-XII grossly intact. Motor strength 5/5 in all extremities. Sensory grossly intact. Psych: Awake, alert, with orientation to person, place and time. Behavior, mood, and affect are within normal limits Vital Signs: 00:53 BP 144 / 96; Pulse 119; Resp 18; Temp 97.5(TE); Pulse Ox 100% on R/A; Weight 113.4 kg; jb4 Height 5 ft. 6 in. (R); Pain 10/10; 02:30 BP 129 / 80; Pulse 88; Resp 18; Temp 98.5; Pulse Ox 96% ; vc1 04:00 BP 130 / 77; Pulse 84; Resp 15; Temp 98.4; Pulse Ox 99% ; vc1 00:53 Body Mass Index 40.35 (113.40 kg, 167.64 cm) jb4 00:53 Pain Scale: Adult jb4 MDM: 00:56 Patient medically screened. sp4 03:46 ED course: EXAM DESCRIPTION: Abdomen Exam Limited 07/25/2023 3:02 AM CDT CLINICAL sp4 HISTORY: 23 years, Female, ABD PAIN COMPARISON: None TECHNIQUE: Grayscale and color doppler images of the gallbladder are provided for evaluation. FINDINGS: Liver: Not imaged. Gallbladder: There are mobile echogenic structure with posterior shadowing corresponding to cholelithiasis. Gallbladder wall thickness measures 1.9 mm. There is no pericholecystic fluid. Sonographic Pearl's sign was not reported by the manager utilization management. Biliary tree: Common duct measures 3.8 mm. No intra and/or extrahepatic biliary ductal dilatation. Pancreas: Was not imaged Right kidney: Was not imaged. Abdominal cavity: Was not imaged. Aorta and IVC: Was not imaged. IMPRESSION: Cholelithiasis without sonographic evidence of acute cholecystitis.. 04:04 ED course: TECHNIQUE: CT of the abdomen and pelvis [with] intravenous contrast. All CT sp4 scans at this facility use dose modulation, iterative reconstruction, and/or weight based dosing when appropriate to reduce radiation dose to as low as reasonably achievable. COMPARISON: Ultrasound abdomen 07/25/2023 FINDINGS: Lower thorax: Lung bases are clear Abdomen: Stomach:Within normal limits Liver:No focal lesions. No intrahepatic ductal distention. Gallbladder:Mildly distended. Pancreas:Within normal limits Spleen:Within normal limits Right kidney:No hydronephrosis. No focal lesion. Left kidney:No hydronephrosis. No focal lesion. Adrenal glands:Within normal limits Vascular structures:Within normal limits Nodes:No lymphadenopathy by size criteria Pelvis: Small bowel:No significant distention. Appendix:Within normal limits Colon:No distention or acute pericolonic edema. Peritoneum: No free intraperitoneal fluid or air. Bones: No acute bone findings. Bladder: Unremarkable. Reproductive organs: No acute findings. IMPRESSION: No acute abdominopelvic findings. . 04:13 Differential Diagnosis altered mental status, sepsis, flu. Data reviewed: vital signs, sp4 nurses notes, lab test result(s), radiologic studies, CT scan, ultrasound. Consideration of Admission/Observation Escalation of care including admission/observation considered. 04:15 ED course: CT has revealed no acute abdominal pelvic findings. Gallbladder is mildly sp4 distended. Ultrasound has revealed cholelithiasis without acute cholecystitis. Patient stable for discharge home with follow-up with Dr. Draper for consideration for cholecystectomy. . 07/24 00:53 Order name: CBC with Diff; Complete Time: 02:37 sp4 07/24 00:53 Order name: CMP; Complete Time: 02:37 sp4 07/24 00:53 Order name: Lipase; Complete Time: 02:37 sp4 07/24 00:53 Order name: Test, Urine; Complete Time: 02:37 sp4 07/24 00:53 Order name: Urinalysis w/ reflexes; Complete Time: 02:37 sp4 07/24 00:56 Order name: CRP; Complete Time: 02:37 sp4 07/24 00:56 Order name: CT Abd/Pelvis - IV Contrast Only sp4 07/24 00:56 Order name: US Abdomen Limited sp4 07/24 00:53 Order name: IV Saline Lock; Complete Time: 01:35 sp4 07/24 00:53 Order name: Labs collected and sent; Complete Time: 01:35 sp4 Administered Medications: 02:23 Drug: morphine IVP or IV 4 mg IVP once over 4 mins Route: IVP; Infused Over: 4 mins; vc1 Site: right antecubital; 04:27 Follow up: Response: No adverse reaction; Marked relief of symptoms vc1 02:23 Drug: Ketorolac IVP 30 mg IVP once Route: IVP; Site: right antecubital; vc1 04:26 Follow up: Response: No adverse reaction; Marked relief of symptoms; Pain is decreased vc1 02:23 Drug: Ondansetron IVP 4 mg IVP once; over 2 minutes Route: IVP; Site: right antecubital;vc1 04:26 Follow up: Response: No adverse reaction; Marked relief of symptoms vc1 02:23 Drug: Famotidine IVP 20 mg IVP once; dilute with 10 mL 0.9% NaCl; give over 2 minutes vc1 Route: IVP; Site: right antecubital; 04:26 Follow up: Response: No adverse reaction; Marked relief of symptoms; Pain is decreased vc1 Disposition Summary: 07/25/23 04:17 Discharge Ordered Notes: Consume Non fat diet
Clear liquids only for 24 hours Location: Home sp4 Problem: new sp4 Symptoms: have improved sp4 Condition: Stable sp4 Diagnosis - Other cholelithiasis without obstruction sp4 - Cholelithiasis without acute cholecystitis. Epigastric abdominal pain sp4 Followup: sp4 - With: Shemar Draper MD - When: 7 - 10 days - Reason: Recheck today's complaints Discharge Instructions: - Discharge Summary Sheet sp4 - Cholelithiasis sp4 Forms: - Patient Portal Instructions sp4 Prescriptions: - promethazine 25 mg Oral Tablet - take 1 tablet ORAL route every 6 hours As needed; 20 tablet; Refills: 0, sp4 Product Selection Permitted - dicyclomine 20 mg Oral tablet - take 1 tablet ORAL route every 6 hours PRN abdominal pain; 30 tablet; Refills: sp4 0, Product Selection Permitted Signatures: Dispatcher [employer] Farhan Ramirez RN RN jb4 Elina Hernandez RN RN vc1 Preston Reyes MD MD sp4 Corrections: (The following items were deleted from the chart) 00:56 00:55 PSHx: None; jb4 jb4
[2023-07-25 04:58] VITALS: BP 130/77; TEMP 98.4; O2SAT 99
--- NOTE | 2023-07-25 12:41 | RAD REPORT ---
EXAM DESCRIPTION: US - Abdomen Exam Limited - 07/25/2023 1:42 am CLINICAL HISTORY: 23 years, Female, ABD PAIN COMPARISON: None TECHNIQUE: Grayscale and color doppler images of the gallbladder are provided for evaluation. FINDINGS: Liver: Not imaged. Gallbladder: There are mobile echogenic structure with posterior shadowing corresponding to cholelith iasis. Gallbladder wall thickness measures 1.9 mm. There is no pericholecystic fluid. Sonographic Mur phy's sign was not reported by the flour blender helper. Biliary tree: Common duct measures 3.8 mm. No intra and/or extrahepatic biliary ductal dilatation. Pancreas: Was not imaged Right kidney: Was not imaged. Abdominal cavity: Was not imaged. Aorta and IVC: Was not imaged. IMPRESSION: Cholelithiasis without sonographic evidence of acute cholecystitis. Electronically signed by: Champ Bolden MD 07/25/2023 03:04 AM CDT Due to temporary technical issues with the PACS/Fluency reporting system, reports are being signed by the in house radiologist without review as a courtesy to ensure prompt reporting. The interpreting r adiologist is fully responsible for the content of the report.
--- NOTE | 2023-07-25 12:51 | RAD REPORT ---
EXAM DESCRIPTION: CT - Abdomen Pelvis W Contrast - 07/25/2023 5:59 am [facility]: CT ABDOMEN PELVIS WITH IV CONTRAST CLINICAL HISTORY: 23 years Female; upper abd and mid back pain; IV ONLY Bed Name: 8 TECHNIQUE: CT of the abdomen and pelvis with intravenous contrast. All CT scans at this facility use dose modulation, iterative reconstruction, and/or weight based dosi ng when appropriate to reduce radiation dose to as low as reasonably achievable. COMPARISON: Ultrasound abdomen 07/25/2023 FINDINGS: Lower thorax: Lung bases are clear Abdomen: Stomach: Within normal limits Liver: No focal lesions. No intrahepatic ductal distention. Gallbladder: Mildly distended. Pancreas: Within normal limits Spleen: Within normal limits Right kidney: No hydronephrosis. No focal lesion. Left kidney: No hydronephrosis. No focal lesion. Adrenal glands: Within normal limits Vascular structures: Within normal limits Nodes: No lymphadenopathy by size criteria Pelvis: Small bowel: No significant distention. Appendix: Within normal limits Colon: No distention or acute pericolonic edema. Peritoneum: No free intraperitoneal fluid or air. Bones: No acute bone findings. Bladder: Unremarkable. Reproductive organs: No acute findings. IMPRESSION: No acute abdominopelvic findings. Electronically signed by: Wang Gilmore MD 07/25/2023 03:53 AM CDT Due to temporary technical issues with the PACS/Fluency reporting system, reports are being signed by the in house radiologist without review as a courtesy to ensure prompt reporting. The interpreting r adiologist is fully responsible for the content of the report.
== END ==
LOC: ER 00:32
DX: K80.80 Other cholelithiasis without obstruction (principal)
CPT/HCPCS: 85025; 36415; 81025; 81003; 83690; 80053; 86140; 74177; 76705; 96375; 96374; 99285; Q9967; J2405

== ENCOUNTER 2023-08-05 08:40 | Day surgery (SDC) | payer BC ==
[2023-08-05 08:49] LABS: Absolute Basophils 0.1 K/uL (0-0.5); Absolute Eosinophils 0.2 K/uL (0-0.5); Absolute Lymphocytes (CBC) 2.1 K/uL (0.7-4.9); Absolute Monocytes 0.5 K/uL (0.1-1.3); Absolute Neutrophil 4.3 K/uL (1.8-8.0); Basophils % 0.9 % (0-1.3); Eosinophils % 2.6 % (0-4.4); Hematocrit 40.8 % (36.0-45.0); Lymphocytes % 29.6 % (15.3-44.8); MCH 31.2 pg (27.0-35.0); MCHC 34.2 g/dL (32.0-36.0); MCV 91.4 fL (80-100); MPV 7.9 fL (7.6-11.3); Monocytes % 6.4 % (3.3-12.3); Neutrophils % 60.5 % (41.7-73.7); Nucleated Red Blood Cells % 0.1 % (0-0); Platelets 361 thou/uL (152-406); RBC Red Blood Cell Count 4.47 M/uL (3.86-4.86); Red Cell Distribution Width 12.9 % (12.1-15.2)
[2023-08-05 09:05] LABS: ALT/SGPT 32 U/L (13-56); AST/SGOT 22 U/L (15-37); Albumin 3.4 g/dL (3.4-5.0); Albumin/Globulin Ratio 0.7 (1.1-1.8); Alkaline Phosphatase 50 U/L (45-117); Anion Gap 8.6 mEq/L (5.0-15.0); BUN Blood Urea Nitrogen 9 mg/dL (7-18); Bicarbonate 27 mEq/L (21-32); Bilirubin Total 0.3 mg/dL (0.2-1.0); Globulin 4.6 g/dL (2.3-3.5); Glomerular Filtration Rate 86 ml/min (=/>90); Glucose Level 115 mg/dL (74-106); Lipase 26 U/L (13-75); Potassium 4.6 mEq/L (3.5-5.1); Sodium Level 139 mEq/L (136-145)
[2023-08-05 09:09] LABS: Bilirubin Direct < 0.1 mg/dL (0-0.2); Bilirubin Indirect, Calculated ND mg/dL (0.2-0.8)
[2023-08-05] MEDS: Ringers Lactate 1,000 ML IV ONE (09:20)
[2023-08-05] MEDS ORDERED: SUGAMMADEX SODIUM 200 MG/2 ML VIAL IV ONE (09:22)
[2023-08-05] MEDS ORDERED: SUCCINYLCHOLINE 20 MG/ML (10 ML) IV ONE (09:22)
[2023-08-05] MEDS ORDERED: ONDANSETRON 4 MG/2 ML VIAL ONE (09:23)
[2023-08-05] MEDS ORDERED: FENTANYL CITR 100 MCG/2 ML ONE ×3 (09:23→11:51)
[2023-08-05] MEDS ORDERED: LIDOCAINE 2% MPF 5 ML VIAL ONE (09:23)
[2023-08-05] MEDS ORDERED: ROCURONIUM 50 MG/5 ML VIAL IV ONE (09:23)
[2023-08-05] MEDS ORDERED: propofoL 200 MG/20 ML VIAL IV ONE (09:23)
[2023-08-05] MEDS ORDERED: MIDAZOLAM HCL 2 MG/2 ML INJ ONE (09:23)
[2023-08-05] MEDS ORDERED: BUPIVACAINE 0.5% PF 10 ML VIAL ONE (09:41)
[2023-08-05] MEDS ORDERED: dexAMETHasone 10 MG/ML VIAL ONE (10:22)
[2023-08-05] MEDS: CEFOXITIN SODIUM 1 GM/VIAL ONE (10:22)
[2023-08-05] MEDS ORDERED: EPHEDRINE SULF 50 MG/ML VIAL ONE (10:42)
[2023-08-05] MEDS ORDERED: NEOSTIGMINE 1 MG/ML -10 ML VIAL ONE (11:00)
[2023-08-05] MEDS ORDERED: GLYCOPYRROLATE 0.2 MG/ML SYR ONE (11:00)
[2023-08-05] MEDS ORDERED: KETOROLAC 30 MG/ML INJ ONE (11:00)
--- NOTE | 2023-08-05 11:07 | P.BOP ---
Preoperative diagnosis: acute cholecystitis, symptomatic cholelithiasis Postoperative diagnosis: same Primary procedure: Laparoscopic cholecystectomy Communication Manager: Joanna Geronimo (Moe) Estimated blood loss: <10cc Specimen: gb Findings: as above Anesthesia: General Complications: None Transferred to: Recovery Room Condition: Good
[2023-08-05 12:22] VITALS: O2SAT 99
[2023-08-05] MEDS: CODEINE 30MG/APAP 300MG TAB ONE (12:52)
[2023-08-05 13:06] VITALS: BP 140/58; TEMP 98.1
--- NOTE | 2023-08-05 14:20 | OP ---
Date of Procedure: 08/05/2023 Surgeon: Heron Malone MD Insurance Inspector: MARÍA Hensley. Preoperative Diagnosis: Acute cholecystitis, symptomatic cholelithiasis. Postoperative Diagnosis: Acute cholecystitis, symptomatic cholelithiasis. Procedure: Laparoscopic cholecystectomy. Estimated Blood Loss: Less than 10 mL. Specimen: Gallbladder. Anesthesia: General plus local. Complications: None. Indications For Procedure: This is the case of a 23-year-old patient who comes to us with acute abdo saundra pain, diagnosed with acute cholecystitis, symptomatic cholelithiasis. The patient still has ri ght upper quadrant abdominal pain. The benefits, alternatives, and risks laparoscopic possible open cholecystectomy fully explained, which include, but not limited to infection, bleeding, damage to adj acent structures, anesthesia complication, choledocholithiasis, bile leak, pancreatitis, SC, and deat h. She also understands this may not relieve symptoms. She might need more than one surgical interv ention. She understood, signed a consent. Description Of Procedure: The patient was brought to the operating room, placed on supine position. Anesthesia was done without complication. Abdominal area was prepped and draped in a sterile fashio n. Local anesthesia was applied, followed by sharp incision of skin in the infraumbilical region aft er time-out. Incision was carried down to fascia, which was opened under direct vision. Peritoneum was encountered, opened under direct vision. Vicryl #1 placed inside the fascia. Jean Carlos trocar was carefully introduced. No bleeding was obtained. I placed 3 more trocars, 5 mm each one of them, 1 i n the epigastric area, 2 in the right upper quadrant using same technique, which consisted of local a nesthetic, sharp incision of the skin, introduction of the trocars under direct vision. This allowed me to put a grasper in the fundus of the gallbladder and another grasper in the infundibulum, retrac fern the gallbladder in the inferolateral fashion exposing the triangle of Calot, obtaining critical v iew. The cystic duct and cystic artery were clearly isolated, freed circumferentially, and a connect ion between those and the gallbladder were clearly identified. I proceeded to ligate those by using at least 3 clips proximal 1 clip distal, ligation in middle. Same was done with the cystic artery. No bile leak. No bleeding. The gallbladder was removed from liver using Bovie cauterizer and remove d from abdominal cavity using EndoCatch through umbilical incision. The area was inspected once agai n. No bile leak. No bleeding. At that moment, I proceeded to remove the trocars under direct visio n, deflated pneumoperitoneum, closed the fascia with #1 Vicryl, irrigated subcutaneous tissue, closed with 3-0 chromic and the skin with 3-0 chromic in a subcuticular fashion. Sponge counts and instrum ent counts were correct. The patient tolerated the procedure well. The patient was sent to Recovery in stable condition. Condition: Stable. Disposition: Home. Activity: As tolerated. No heavy lifting. Follow up in my office in 1 week. Call for appointment [phone]. Keep area dry for 48 hours, then may shower. Keep Steri-Strips intact. For medications, see orders. CLAUDIA/ZAN Voice ID: [id number] Report ID: [id number]
== END 2023-08-05 13:13 | disposition home or self-care (01) ==
LOC: OR 08:40
PROVIDERS: ATTEND Surgery
PROC: 0FT44ZZ Resection of Gallbladder, Percutaneous Endoscopic Approach (ICD-10-PCS; principal; 2023-08-05 10:45)
DX: K81.0 Acute cholecystitis (principal); K80.10 Calculus of gallbladder with chronic cholecystitis without obstruction
CPT/HCPCS: 85025; 80048; 36415; 84703; 80076; 88304; 83690; 47600; J2704; J2710; J2001; J2250; J3010 ×3; J1100; J0694; J2405; J7120